=== PATIENT | male | born 1970 | race Caucasian/White ===

== ENCOUNTER 2020-05-24 06:01 | Emergency (ER) | payer SELFPAY ==
[~2020-05-24] VITALS: Ht 203.2 cm; Wt 138.0 kg
[2020-05-24] MEDS ORDERED: ZIPRASIDONE MESYLATE 20MG/VIAL IM ONE (06:45)
[2020-05-24] MEDS ORDERED: LORAZEPAM 1MG TABLET PO ONE ×2 (06:45→15:45)
[2020-05-24] MEDS ORDERED: DIPHENHYDRAMINE 50MG/ML VIAL IM ONE (07:00)
[2020-05-24 08:11] LABS: BASOPHILS % 0.8 % (0.0-2.0); EOSINOPHILS % 0.2 % (0.0-5.0); HEMATOCRIT. 48.3 % (42.0-52.0); HEMOGLOBIN. 16.1 g/dL (14.0-18.0); LYMPHOCYTES % 25.9 % (20.0-50.0); MEAN CORPUSCULAR HEMOGLOBIN 29.1 pg (28.0-32.0); MEAN CORPUSCULAR VOLUME 87.4 fL (80.0-94.0); MONOCYTES % 6.3 % (2.0-8.0); NEUTROPHILS % 66.8 % (40.0-76.0); PLATELET 264 x1000/uL (130-400); RED BLOOD CELL COUNT 5.52 mill/uL (4.7-6.1); RED CELL DISTRIBUTION WIDTH 15.8 % (11.6-14.6)
[2020-05-24 08:22] LABS: CHLORIDE 107 mEq/L (98-107)
[2020-05-24 08:28] LABS: ETHANOL BLOOD 174 mg/dL
[2020-05-24 09:13] LABS: *AMPHETAMINES SCREEN URINE NEGATIVE (NEGATIVE); *BARBITURATES SCREEN URINE NEGATIVE (NEGATIVE)
[2020-05-24 09:14] LABS: *BENZODIAZEPINES SCREEN URINE PRESUMTIVE POSITIVE (NEGATIVE); *COCAINE SCREEN URINE NEGATIVE (NEGATIVE); CANNABINOID URINE SCREEN PRESUMTIVE POSITIVE (NEGATIVE); METHADONE URINE SCREEN NEGATIVE (NEGATIVE); OPIATES URINE SCREEN NEGATIVE (NEGATIVE); PHENCYCLIDINE URINE SCREEN NEGATIVE (NEGATIVE)
[2020-05-24] MEDS ORDERED: HALOPERIDOL LACTATE 5MG/ML VIAL IM ONE (09:30)
[2020-05-24] MEDS ORDERED: FOLIC ACID 1MG TABLET PO SCH (15:45)
[2020-05-24] MEDS ORDERED: SERTRALINE HCL 50MG TABLET PO SCH (15:45)
[2020-05-24] MEDS ORDERED: THIAMINE HCL 100MG TABLET PO ONE (15:45)
[2020-05-24] MEDS ORDERED: BUSPIRONE HCL 10MG TABLET PO ONE (15:45)
[2020-05-24] MEDS ORDERED: GABAPENTIN 300MG CAPSULE PO SCH (17:00)
[2020-05-24] MEDS ORDERED: TRAZODONE HCL 50MG TABLET PO SCH (21:00)
[2020-05-25 15:21] VITALS: BP 140/85
== END 2020-05-25 15:24 | disposition home or self-care (01) ==
LOC: ER 06:40
DX: R45.851 Suicidal ideations (principal); F10.229 Alcohol dependence with intoxication, unspecified; F32.9 Major depressive disorder, single episode, unspecified; F10.239 Alcohol dependence with withdrawal, unspecified; I10 Essential (primary) hypertension; Y90.8 Blood alcohol level of 240 mg/100 ml or more
CPT/HCPCS: 36415; 80048; 80305; 80307; 80320; 80329; 85025; 93005; 96372; 99285; J1200; J1630; J3486; G0480